=== PATIENT | male | born 1995 | race Two or more races ===

== ENCOUNTER 2023-05-13 18:01 | Emergency (ER) | payer OTHER ==
[~2023-05-13] VITALS: Ht 180.3 cm; Wt 98.3 kg
[2023-05-13 18:46] VITALS: BP 148/101; RESP 16; TEMP 98.7; O2SAT 97
[2023-05-13 19:05] LABS: Basophils # (auto) 0 10 ^3/uL (0-0.2); Eosinophils # (auto) 0.1 10 ^3/uL (0-0.8); Monocytes # (auto) 0.5 10 ^3/uL (0-1.3); Nucleated Red Blood Cells % 0.1 %; White Blood Cell 7.6 10^3/uL (4.4-10.8)
[2023-05-13 19:07] LABS: Basophils % (auto) 0.4 % (0.0-2.0); Eosinophils % (auto) 1.4 % (0.0-7.0); Hematocrit 44.1 % (41.0-53.0); Hemoglobin 14.6 g/dL (13.5-17.5); Lymphocytes # (auto) 2.6 10 ^3/uL (0.4-5.4); Lymphocytes % (auto) 33.4 % (10.0-50.0); Mean Corpuscular Hemoglobin 26.9 pg (28.0-32.0); Mean Corpuscular Volume 81.6 fL (80.0-100.0); Neutrophils # (auto) 4.4 10 ^3/uL (1.6-8.6); Neutrophils % (auto) 57.8 % (37.0-80.0); Red Cell Distribution Width 13.2 % (11.8-14.3)
[2023-05-13 19:22] LABS: Alanine Aminotransferase 45 U/L (7-40); Albumin 5.2 g/dL (3.2-4.8); Alkaline Phosphatase 106 U/L (46-116); Anion Gap 7 (5-15); Aspartate Aminotransferase 24 U/L (13-40); Bilirubin, Total 0.4 mg/dL (0.2-1.0); Blood Urea Nitrogen 17 mg/dL (9-23); Carbon Dioxide 27 mmol/L (20-30); Chloride 105 mmol/L (98-107); Glucose 99 mg/dL (74-106); Potassium 3.9 mmol/L (3.5-5.1); Sodium 139 mmol/L (136-145); Total Protein 8.2 g/dL (5.7-8.2)
[2023-05-13] MEDS ORDERED: ONDANSETRON ODT 4 MG TAB PO ONE (20:15)
[2023-05-13] MEDS ORDERED: MECLIZINE HCL 25 MG TAB PO ONE (20:15)
[2023-05-13] MEDS ORDERED: IBUPROFEN 800 MG TAB PO ONE (20:15)
[2023-05-13] MEDS ORDERED: CARB6.5S44 OT (20:16)
[2023-05-13] MEDS ORDERED: MECL25CH85 PO (20:16)
[2023-05-13] MEDS ORDERED: AUG875T PO (20:16)
[2023-05-13] MEDS ORDERED: ZOFR4T PO (20:16)
[2023-05-13] MEDS ORDERED: IBUP1TAB5 PO (20:16)
[2023-05-13 20:26] VITALS: PULSE 84
== END 2023-05-13 20:58 | disposition home or self-care (01) ==
LOC: ER 18:01
DX: H61.21 Impacted cerumen, right ear (principal); H66.91 Otitis media, unspecified, right ear; R51.9 Headache, unspecified; R42 Dizziness and giddiness
CPT/HCPCS: 36415; 80053; 84484; 85025; 93005; 99284; J8597; Q0162